=== PATIENT | male | born 1980 | race Caucasian/White ===

== ENCOUNTER 2024-07-30 01:39 | Inpatient (IN) | payer MEDICAID, OTHER ==
[~2024-07-30] VITALS: Ht 172.7 cm; Wt 98.0 kg
[2024-07-30] VITALS (12 sets, daily range): BP systolic 120–182; BP diastolic 60–97; PULSE 64–77; RESP 18–20; TEMP 36.4–37.2; O2SAT 90–98
[~2024-07-30 01:39] MED LIST: GABAPENTIN PO; INSULIN SUBCUT
[2024-07-30 02:24] LABS: CHLORIDE 99 mEq/L (98-107); POTASSIUM 5.2 mEq/L (3.5-5.1); SODIUM 137 mEq/L (136-145)
[2024-07-30 02:25] LABS: CALCIUM 7.4 mg/dL (8.7-10.4); CARBON DIOXIDE 27 mEq/L (21-32)
[2024-07-30 02:28] LABS: BASOPHILS % 0.4 % (0.0-2.0); EOSINOPHILS % 2.8 % (0.0-5.0); HEMATOCRIT. 32.7 % (42.0-52.0); HEMOGLOBIN. 10.7 g/dL (14.0-18.0); LYMPHOCYTES % 7.5 % (20.0-50.0); MEAN CORPUSCULAR HEMOGLOBIN 28.2 pg (28.0-32.0); MEAN CORPUSCULAR HGB CONC 32.8 g/dL (31.0-37.0); MEAN PLATELET VOLUME 7.1 fl (7.4-10.4); MONOCYTES % 10.9 % (2.0-8.0); NEUTROPHILS % 78.4 % (40.0-76.0); PLATELET 236 x1000/uL (130-400); RED CELL DISTRIBUTION WIDTH 18.9 % (11.6-14.6)
[2024-07-30 02:30] LABS: GLUCOSE 92 mg/dL (70-105); UREA NITROGEN BLOOD 56 mg/dL (9-23)
[2024-07-30 02:31] LABS: ETHANOL BLOOD < 10 mg/dL (<10)
[2024-07-30 02:32] LABS: TROPONIN I HIGH SENSITIVITY 19 ng/L (3.0-53)
[2024-07-30 02:48] LABS: D-DIMER 2.17 mg/L FEU (<0.50); INR 1.1; PARTIAL THROMBOPLASTIN TIME 28.4 sec (23.4-31.0); PROTHROMBIN TIME 11.8 sec (9.6-11.0)
[2024-07-30 02:51] LABS: CREATININE 5.4 mg/dL (0.6-1.3)
[2024-07-30] MEDS: MORPHINE SULFATE 4 MG/ML INJ (FOR IV/IM USE) IV ONE (02:58)
[2024-07-30] MEDS: ONDANSETRON HCL 4MG/2ML INJ IV ONE (04:56)
[2024-07-30] MEDS ORDERED: PNEUMOCOCCAL 20-VAL CONJ-DIP CRM 0.5ML IM ONE (07:30)
[2024-07-30] MEDS ORDERED: ALBUTEROL (0.083%) 2.5MG/3ML NEB HHN NR (07:45)
[2024-07-30] MEDS ORDERED: GUAIFENESIN 200MG/10ML SUGAR FREE UDC PO PRN (07:45)
[2024-07-30] MEDS ORDERED: LORAZEPAM 0.5MG TABLET PO PRN (07:45)
[2024-07-30] MEDS ORDERED: MAGNESIUM/ALUMINUM HYDROXIDE/SIMETHICONE 30ML UDC PO PRN (07:45)
[2024-07-30] MEDS ORDERED: DEXTROSE 50% WATER 50ML SYRINGE IV PRN (07:45)
[2024-07-30] MEDS ORDERED: ONDANSETRON HCL 4MG/2ML INJ IV PRN (07:45)
[2024-07-30] MEDS ORDERED: ACETAMINOPHEN 325MG TABLET PO PRN ×2 (07:45)
[2024-07-30] MEDS ORDERED: IPRATROPIUM/ALBUTEROL 0.5-3(2.5)MG/3ML NEB HHN PRN (07:45)
[2024-07-30] MEDS ORDERED: DEXTROSE 50% WATER 50ML SYRINGE IV NR (07:45)
[2024-07-30] MEDS ORDERED: DOCUSATE SODIUM 100MG CAPSULE PO PRN (07:45)
[2024-07-30] MEDS ORDERED: ENOXAPARIN 40MG/0.4ML SYR SUBCUT SCH (07:45)
[2024-07-30] MEDS ORDERED: PIPERACILLIN/TAZOBACTAM 3.375 G in DEXTROSE 5% WATER 50 ML IV SCH (07:45)
[2024-07-30] MEDS ORDERED: LOSA100T33 PO (07:54)
[2024-07-30] MEDS ORDERED: HYDR50TA39 PO (07:54)
[2024-07-30] MEDS ORDERED: AMLO10TA80 PO (07:54)
[2024-07-30] MEDS ORDERED: SEVE800T25 BC (07:54)
[2024-07-30] MEDS ORDERED: SEVE800T25 (07:54)
[2024-07-30] MEDS ORDERED: CINA30TA5 PO (07:54)
[2024-07-30] MEDS ORDERED: SODIUM BICARBONATE 8.4% 50MEQ/50ML SYR IV NR (08:38)
[2024-07-30] MEDS: MORPHINE SULFATE 2 MG/ML INJ (NOT FOR IM USE) IV PRN (08:50)
[2024-07-30 08:55] LABS: HEPATITIS B SURFACE ANTIGEN NEGATIVE (Negative)
[2024-07-30 09:16] LABS: HEPATITIS C AB NON REACTIVE (Neg) (Negative)
[2024-07-30] MEDS: INSULIN REGULAR (HUMULIN R) 1000UNITS/10ML VIAL IV SCH (09:30)
[2024-07-30] MEDS: CINACALCET HCL 30MG TABLET PO SCH (10:10)
[2024-07-30] MEDS: AMLODIPINE 10MG TABLET PO SCH (10:11)
[2024-07-30] MEDS: HYDRALAZINE HCL 50MG TABLET PO SCH (10:11)
[2024-07-30] MEDS: SODIUM ZIRCONIUM CYCLOSILICATE 10GM/PACKET PO NR (10:12)
[2024-07-30] MEDS: BLOOD SUGAR DIAGNOSTIC STRIP TEST SCH (11:45)
[2024-07-30] MEDS: INSULIN LISPRO 100 UNITS/ML SUBCUT SCH (12:15)
[2024-07-30] MEDS: SEVELAMER CARBONATE 800 MG TABLET PO SCH (12:15)
[2024-07-30 14:46] LABS: HEPATITIS B SURFACE ANTIGEN NEGATIVE (Negative)
[2024-07-30 15:06] LABS: HEPATITIS A AB IGM NEGATIVE (Negative)
[2024-07-30 15:07] LABS: HEPATITIS B CORE AB IGM NEGATIVE (Negative); HEPATITIS C AB NON REACTIVE (Neg) (Negative)
[2024-07-30] MEDS: LOSARTAN 100 MG TABLET PO SCH (16:06)
[2024-07-30] MEDS: GABAPENTIN 300MG CAPSULE PO SCH (16:07)
[2024-07-30] MEDS: ENOXAPARIN 30MG/0.3ML SYR SUBCUT SCH (16:20)
[2024-07-30] MEDS: PIPERACILLIN/TAZO 3.375G/50ML IV SCH (16:43)
[2024-07-30 17:04] LABS: TROPONIN I HIGH SENSITIVITY 16 ng/L (3.0-53)
[2024-07-30 17:05] LABS: CREATINE KINASE 193 IU/L (46-171)
[2024-07-30] MEDS: VANCOMYCIN 1.5GM PMX (XELLIA) 300 ML IV SCH (18:55)
[2024-07-30 18:57] LABS: CLARITY URINE CLEAR (CLEAR); COLOR URINE YELLOW (YELLOW); GLUCOSE URINE 2+ (NEGATIVE); KETONES URINE NEGATIVE (NEGATIVE); LEUKOCYTE ESTERASE URINE NEGATIVE (NEGATIVE); NITRITE URINE NEGATIVE (NEGATIVE); OCCULT BLOOD URINE TRACE (NEGATIVE); PROTEIN URINE 4+ (NEGATIVE); SPECIFIC GRAVITY URINE 1.015 (1.005-1.030)
[2024-07-30 19:13] LABS: *AMPHETAMINES SCREEN URINE NEGATIVE (NEGATIVE); *BARBITURATES SCREEN URINE NEGATIVE (NEGATIVE); *BENZODIAZEPINES SCREEN URINE NEGATIVE (NEGATIVE); *COCAINE SCREEN URINE NEGATIVE (NEGATIVE); CANNABINOID URINE SCREEN NEGATIVE (NEGATIVE); ECSTASY MDMA SCREEN URINE NEGATIVE (NEGATIVE); METHADONE URINE SCREEN NEGATIVE (NEGATIVE); OPIATES URINE SCREEN PRESUMPTIVE POSITIVE (NEGATIVE); PHENCYCLIDINE URINE SCREEN NEGATIVE (NEGATIVE)
[2024-07-30 19:56] LABS: BACTERIA URINE TRACE; RBC URINE 0-2 /hpf (0-2); SQUAMOUS EPITHELIAL CELL URINE FEW /lpf (RARE/1+); WBC URINE 0-2 /hpf (0-2)
[2024-07-31] VITALS: BP 134/66; PULSE 64; RESP 17; TEMP 36.6; O2SAT 91
[2024-07-31 00:40] LABS: CREATINE KINASE 186 IU/L (46-171); TROPONIN I HIGH SENSITIVITY 17 ng/L (3.0-53)
[2024-07-31 04:00] VITALS: BP 136/65; PULSE 66; RESP 17; TEMP 36.1; O2SAT 98
[2024-07-31 07:14] LABS: BASOPHILS % 0.7 % (0.0-2.0); EOSINOPHILS % 3.5 % (0.0-5.0); HEMATOCRIT. 29.4 % (42.0-52.0); HEMOGLOBIN. 9.7 g/dL (14.0-18.0); LYMPHOCYTES % 10.4 % (20.0-50.0); MEAN CORPUSCULAR HEMOGLOBIN 28.5 pg (28.0-32.0); MEAN CORPUSCULAR HGB CONC 33.1 g/dL (31.0-37.0); MEAN CORPUSCULAR VOLUME 86.1 fL (80.0-94.0); MEAN PLATELET VOLUME 7.1 fl (7.4-10.4); MONOCYTES % 12.8 % (2.0-8.0); NEUTROPHILS % 72.6 % (40.0-76.0); PLATELET 213 x1000/uL (130-400); RED BLOOD CELL COUNT 3.42 mill/uL (4.7-6.1); RED CELL DISTRIBUTION WIDTH 18.4 % (11.6-14.6)
[2024-07-31 07:19] LABS: CALCIUM 7.4 mg/dL (8.7-10.4); POTASSIUM 5.2 mEq/L (3.5-5.1)
[2024-07-31 07:20] LABS: T4 FREE 1.12 ng/dL (0.89-1.76)
[2024-07-31 07:21] LABS: THYROID STIMULATING HORMONE 6.41 uIU/mL (0.55-4.78)
[2024-07-31 08:00] VITALS: BP 121/64; PULSE 61; RESP 24; O2SAT 92
[2024-07-31 08:14] LABS: CREATININE 5.5 mg/dL (0.6-1.3)
[2024-07-31 12:00] VITALS: BP 142/65; PULSE 57; RESP 20; TEMP 36.4; O2SAT 92
[2024-07-31] MEDS: CEFAZOLIN 1000MG PREMIX 50 ML IV SCH (19:07)
[2024-07-31 20:00] VITALS: BP 129/66; PULSE 71; RESP 18; TEMP 35.9; O2SAT 96
[2024-08-01] VITALS (14 sets, daily range): BP systolic 101–142; BP diastolic 56–89; PULSE 59–79; RESP 17–20; TEMP 35.1–37; O2SAT 92–98
[2024-08-01 07:32] LABS: CALCIUM 7.3 mg/dL (8.7-10.4)
[2024-08-01 07:35] LABS: HEMATOCRIT 31.6 % (42.0-52.0); HEMOGLOBIN 10.2 g/dL (14.0-18.0); MEAN CORPUSCULAR HEMOGLOBIN 28.2 pg (28.0-32.0); MEAN CORPUSCULAR HGB CONC 32.4 g/dL (31.0-37.0); PLATELET 239 x1000/uL (130-400); RED BLOOD CELL COUNT 3.63 mill/uL (4.7-6.1); RED CELL DISTRIBUTION WIDTH 18.3 % (11.6-14.6); WHITE BLOOD COUNT 7.6 x1000/uL (4.5-11.0)
[2024-08-01 08:13] LABS: CREATININE 6.3 mg/dL (0.6-1.3)
[2024-08-01] MEDS ORDERED: SODIUM POLYSTYRENE SULFONATE 15 G/60 ML BOT PO ONE (08:30)
[2024-08-01] MEDS: DEXTROSE 50% WATER 50ML SYRINGE IV NR (08:36)
[2024-08-01] MEDS: INSULIN REGULAR (HUMULIN R) 1000UNITS/10ML VIAL IV NR (08:37)
[2024-08-01] MEDS: SODIUM BICARBONATE 8.4% 50MEQ/50ML SYR IV NR (08:48)
[2024-08-01] MEDS: SODIUM ZIRCONIUM CYCLOSILICATE 10GM/PACKET PO NR (09:00)
[2024-08-01] MEDS: HYDROCODONE/ACETAMINOPHEN 5/325MG TABLET PO PRN (09:10)
[2024-08-01] MEDS: CLONIDINE 0.1MG TABLET PO PRN (14:38)
[2024-08-01 17:34] LABS: BASOPHILS % 0.3 % (0.0-2.0); EOSINOPHILS % 3.4 % (0.0-5.0); HEMATOCRIT. 30.2 % (42.0-52.0); HEMOGLOBIN. 9.7 g/dL (14.0-18.0); LYMPHOCYTES % 9.3 % (20.0-50.0); MEAN CORPUSCULAR HEMOGLOBIN 27.9 pg (28.0-32.0); MEAN CORPUSCULAR HGB CONC 32.2 g/dL (31.0-37.0); MEAN CORPUSCULAR VOLUME 86.6 fL (80.0-94.0); MEAN PLATELET VOLUME 7.3 fl (7.4-10.4); MONOCYTES % 14.6 % (2.0-8.0); NEUTROPHILS % 72.4 % (40.0-76.0); PLATELET 237 x1000/uL (130-400); RED BLOOD CELL COUNT 3.49 mill/uL (4.7-6.1); RED CELL DISTRIBUTION WIDTH 18.5 % (11.6-14.6); WHITE BLOOD COUNT 6.5 x1000/uL (4.5-11.0)
[2024-08-01 17:40] LABS: POTASSIUM 4.9 mEq/L (3.5-5.1)
[2024-08-01 17:41] LABS: CALCIUM 7.7 mg/dL (8.7-10.4)
[2024-08-01 17:46] LABS: CREATININE 4.9 mg/dL (0.6-1.3)
[2024-08-01] MEDS: CALCIUM GLUCONATE 1GM PREMIX 50 ML IV NR (18:31)
[2024-08-02] VITALS (93 sets, daily range): BP systolic 104–199; BP diastolic 63–109; PULSE 63–97; RESP 18–41; TEMP 36.5–36.9; O2SAT 97–100
[2024-08-02] MEDS ORDERED: NALOXONE HCL 0.4MG/ML VIAL IV PRN (04:00)
[2024-08-02] MEDS ORDERED: DEXMEDETOMIDINE 400 MCG/100 ML 100 ML IV PRN (04:30)
[2024-08-02 04:44] LABS: BG CARBOXYHEMOGLOBIN 0.6 % (0.5-1.5); BG DEOXYHEMOGLOBIN 0.3 % (0.0-5.0); BG FRACTION INSPIRED OXYGEN 100; BG HCO3 ACT 17.2 mmol/L (21.0-28.0); BG METHEMOGLOBIN 0.3 % (0.5-1.5); BG OXYGEN SATURATION 99.7 % (94.0-98.0); BG OXYHEMOGLOBIN 98.8 % (94.0-98.0); BG PCO2 30.1 mmHg (35.0-48.0); BG PH 7.374 (7.350-7.450); BG PO2 513.2 mmHg (83.0-108.0); BG SAMPLE SITE RIGHT BRACHIAL; BG TOTAL HEMOGLOBIN 10.9 g/dL (13.5-17.5); BG TOTAL RESPIRATORY RATE 18 b/min; BG VENT MODE VENT - AC
[2024-08-02] MEDS: DEXMEDETOMIDINE 400 MCG/100 ML 100 ML IV PRN (04:55)
[2024-08-02 05:45] LABS: HEMATOCRIT. 31.8 % (42.0-52.0); MEAN CORPUSCULAR HEMOGLOBIN 27.9 pg (28.0-32.0); MEAN CORPUSCULAR HGB CONC 31.4 g/dL (31.0-37.0); MEAN PLATELET VOLUME 7.5 fl (7.4-10.4); PLATELET 239 x1000/uL (130-400); RED BLOOD CELL COUNT 3.58 mill/uL (4.7-6.1); RED CELL DISTRIBUTION WIDTH 19.1 % (11.6-14.6); WHITE BLOOD COUNT 7.5 x1000/uL (4.5-11.0)
[2024-08-02 05:54] LABS: CHLORIDE 100 mEq/L (98-107); POTASSIUM 6.1 mEq/L (3.5-5.1); SODIUM 136 mEq/L (136-145)
[2024-08-02 05:55] LABS: CALCIUM 8.1 mg/dL (8.7-10.4); CARBON DIOXIDE 20 mEq/L (21-32)
[2024-08-02 06:00] LABS: GLUCOSE 221 mg/dL (70-105); UREA NITROGEN BLOOD 57 mg/dL (9-23)
[2024-08-02 06:01] LABS: TROPONIN I HIGH SENSITIVITY 17 ng/L (3.0-53)
[2024-08-02 06:03] LABS: DIFFERENTIAL COMMENT 1
[2024-08-02] MEDS ORDERED: ACETAMINOPHEN 650MG SUPP PR PRN (06:15)
[2024-08-02 06:30] LABS: LACTIC ACID 4.3 mmol/L (0.4-2.0)
[2024-08-02 06:31] LABS: CREATININE 6.1 mg/dL (0.6-1.3); PHOSPHORUS 8.8 mg/dL (2.5-4.9)
[2024-08-02] MEDS ORDERED: SODIUM CHLORIDE 10% FOR INH 15ML NEB INH SCH (07:15)
[2024-08-02] MEDS: INSULIN REGULAR (HUMULIN R) 1000UNITS/10ML VIAL IV NR (08:00)
[2024-08-02] MEDS: DEXTROSE 50% WATER 50ML SYRINGE IV NR (08:00)
[2024-08-02] MEDS ORDERED: ADENOSINE 3 MG/ML 2ML VIAL IV ONE (08:00)
[2024-08-02] MEDS: SODIUM BICARBONATE 8.4% 50MEQ/50ML SYR IV NR (08:00)
[2024-08-02] MEDS: CALCIUM GLUCONATE 1GM PREMIX 50 ML IV NR (08:26)
[2024-08-02] MEDS: PANTOPRAZOLE SODIUM 40 MG/VIAL IV SCH (09:03)
[2024-08-02 10:13] LABS: ANISOCYTOSIS 2+; PLATELET ESTIMATE NORMAL
[2024-08-02] MEDS: HYDRALAZINE 20MG/ML VIAL IV PRN (10:39)
[2024-08-02 11:32] LABS: HEMATOCRIT. 33.6 % (42.0-52.0); HEMOGLOBIN. 10.9 g/dL (14.0-18.0); MEAN CORPUSCULAR HEMOGLOBIN 27.6 pg (28.0-32.0); MEAN CORPUSCULAR HGB CONC 32.3 g/dL (31.0-37.0); MEAN CORPUSCULAR VOLUME 85.3 fL (80.0-94.0); PLATELET 268 x1000/uL (130-400); RED BLOOD CELL COUNT 3.94 mill/uL (4.7-6.1); RED CELL DISTRIBUTION WIDTH 18.3 % (11.6-14.6); WHITE BLOOD COUNT 9.8 x1000/uL (4.5-11.0)
[2024-08-02 11:54] LABS: DIFFERENTIAL COMMENT 1
[2024-08-02 11:58] LABS: CARBON DIOXIDE 23 mEq/L (21-32); CHLORIDE 100 mEq/L (98-107); POTASSIUM 4.2 mEq/L (3.5-5.1); SODIUM 139 mEq/L (136-145)
[2024-08-02 11:59] LABS: CALCIUM 8.7 mg/dL (8.7-10.4)
[2024-08-02 12:04] LABS: CREATININE 4.6 mg/dL (0.6-1.3); GLUCOSE 151 mg/dL (70-105); UREA NITROGEN BLOOD 40 mg/dL (9-23)
[2024-08-02 12:06] LABS: PHOSPHORUS 4.2 mg/dL (2.5-4.9)
[2024-08-02] MEDS: IPRATROPIUM/ALBUTEROL 0.5-3(2.5)MG/3ML NEB NEB SCH (12:07)
[2024-08-02 12:24] LABS: ALANINE AMINOTRANSFERASE 50 IU/L (10-49); ALBUMIN 3.5 g/dL (3.2-4.8); ASPARTATE AMINOTRANSFERASE 49 IU/L (<34); BILIRUBIN TOTAL 1.1 mg/dL (0.1-1.0); PROTEIN TOTAL 7.3 g/dL (6.0-8.3)
[2024-08-02 12:26] LABS: BILIRUBIN DIRECT 0.8 mg/dL (<=3.0)
[2024-08-02 12:28] LABS: ANISOCYTOSIS 2+; PLATELET ESTIMATE NORMAL
[2024-08-02] MEDS: LABETALOL 5MG/ML 4ML INJ IV NR (13:15)
[2024-08-02] MEDS: SODIUM BICARBONATE 8.4% 50MEQ/50ML SYR IV SCH (14:12)
[2024-08-02 15:26] LABS: BG BASE EXCESS 0.7 mmol/L (-2.0-3.0); BG CARBOXYHEMOGLOBIN 1.1 % (0.5-1.5); BG DEOXYHEMOGLOBIN 0.6 % (0.0-5.0); BG FRACTION INSPIRED OXYGEN 40; BG HCO3 ACT 24.5 mmol/L (21.0-28.0); BG METHEMOGLOBIN 0.3 % (0.5-1.5); BG OXYGEN SATURATION 99.4 % (94.0-98.0); BG PCO2 36.5 mmHg (35.0-48.0); BG PH 7.445 (7.350-7.450); BG PO2 184.9 mmHg (83.0-108.0); BG SAMPLE SITE RIGHT RADIAL; BG TOTAL HEMOGLOBIN 11.8 g/dL (13.5-17.5); BG VENT MODE VENT - AC
[2024-08-02] MEDS ORDERED: LORAZEPAM 2MG/ML INJ IV PRN ×2 (17:45)
[2024-08-02] MEDS ORDERED: LEVETIRACETAM 1,500MG in NACL 100ML PREMIX IV ONE (17:45)
[2024-08-02] MEDS ORDERED: LORAZEPAM 2MG/ML UD SYRINGE IV PRN (18:00)
[2024-08-02] MEDS: LEVETIRACETAM 1500MG PREMIX 100 ML IV NR (18:38)
[2024-08-02 20:24] LABS: POTASSIUM 4.5 mEq/L (3.5-5.1)
[2024-08-02 20:25] LABS: CALCIUM 8.4 mg/dL (8.7-10.4)
[2024-08-02 20:31] LABS: AMMONIA 25 uMol/L (<32)
[2024-08-03] VITALS (90 sets, daily range): BP systolic 135–168; BP diastolic 61–80; PULSE 59–78; RESP 18–35; TEMP 36.6–37.4; O2SAT 96–100
[2024-08-03] MEDS: DEXT 5%/0.45% NACL 1000ML 1,000 ML IV SCH (00:34)
[2024-08-03] MEDS: METOCLOPRAMIDE HCL 10MG/2ML VIAL IV SCH (00:34)
[2024-08-03 06:10] LABS: HEMATOCRIT. 33.9 % (42.0-52.0); HEMOGLOBIN. 10.9 g/dL (14.0-18.0); MEAN CORPUSCULAR HEMOGLOBIN 27.2 pg (28.0-32.0); MEAN CORPUSCULAR VOLUME 85.1 fL (80.0-94.0); MEAN PLATELET VOLUME 7.3 fl (7.4-10.4); PLATELET 258 x1000/uL (130-400); RED BLOOD CELL COUNT 3.99 mill/uL (4.7-6.1); RED CELL DISTRIBUTION WIDTH 18.1 % (11.6-14.6); WHITE BLOOD COUNT 13.1 x1000/uL (4.5-11.0)
[2024-08-03 06:21] LABS: DIFFERENTIAL COMMENT 1
[2024-08-03 06:22] LABS: CHLORIDE 101 mEq/L (98-107); POTASSIUM 4.9 mEq/L (3.5-5.1); SODIUM 137 mEq/L (136-145)
[2024-08-03 06:23] LABS: CALCIUM 8.2 mg/dL (8.7-10.4); CARBON DIOXIDE 23 mEq/L (21-32)
[2024-08-03 06:28] LABS: GLUCOSE 184 mg/dL (70-105); UREA NITROGEN BLOOD 48 mg/dL (9-23)
[2024-08-03 07:04] LABS: CREATININE 5.4 mg/dL (0.6-1.3)
[2024-08-03] MEDS ORDERED: LEVETIRACETAM 1,000MG in NACL 100ML PREMIX IV SCH (09:00)
[2024-08-03] MEDS: LEVETIRACETAM 1000MG PREMIX 100 ML IV SCH (09:15)
[2024-08-03 09:20] LABS: BG BASE EXCESS -0.3 mmol/L (-2.0-3.0); BG CARBOXYHEMOGLOBIN 0.7 % (0.5-1.5); BG DEOXYHEMOGLOBIN 6.2 % (0.0-5.0); BG FRACTION INSPIRED OXYGEN 40; BG HCO3 ACT 23.2 mmol/L (21.0-28.0); BG METHEMOGLOBIN 0.3 % (0.5-1.5); BG OXYGEN SATURATION 93.7 % (94.0-98.0); BG OXYHEMOGLOBIN 92.8 % (94.0-98.0); BG PH 7.452 (7.350-7.450); BG PO2 71.3 mmHg (83.0-108.0); BG SAMPLE SITE RIGHT RADIAL; BG TOTAL HEMOGLOBIN 11.2 g/dL (13.5-17.5); BG VENT MODE VENT - AC
[2024-08-03 11:05] LABS: ALBUMIN 3.7 g/dL (3.2-4.8)
[2024-08-03] MEDS ORDERED: SODIUM BICARBONATE 4.2% 2.5MEQ/5ML VIAL IV ONE (11:27)
[2024-08-03] MEDS: LIDOCAINE HCL 1% 10 MG/ML 10ML VIAL ONE (11:27)
[2024-08-03 15:21] LABS: GIANT PLATELETS FEW; PLATELET ESTIMATE NORMAL; PLATELET SATELLITISM FEW
[2024-08-03 22:03] LABS: BODY FLUID MONOCYTES 11 %; BODY FLUID RBC 1140 /cu mm (0-2000); BODY FLUID WBC 67 /cu mm (0-200)
[2024-08-03] MEDS: LORAZEPAM 2MG/ML UD SYRINGE IV PRN (23:48)
[2024-08-04] VITALS (112 sets, daily range): BP systolic 116–174; BP diastolic 64–79; PULSE 63–94; RESP 9–24; TEMP 36.44736–37.4; O2SAT 96–100
[2024-08-04 05:49] LABS: HEMATOCRIT. 32.7 % (42.0-52.0); HEMOGLOBIN. 10.6 g/dL (14.0-18.0); MEAN CORPUSCULAR HEMOGLOBIN 27.5 pg (28.0-32.0); MEAN CORPUSCULAR HGB CONC 32.4 g/dL (31.0-37.0); MEAN CORPUSCULAR VOLUME 84.8 fL (80.0-94.0); MEAN PLATELET VOLUME 7.2 fl (7.4-10.4); PLATELET 276 x1000/uL (130-400); RED BLOOD CELL COUNT 3.86 mill/uL (4.7-6.1); RED CELL DISTRIBUTION WIDTH 17.9 % (11.6-14.6)
[2024-08-04 05:58] LABS: DIFFERENTIAL COMMENT 1
[2024-08-04 06:00] LABS: POTASSIUM 5.1 mEq/L (3.5-5.1)
[2024-08-04 06:01] LABS: CALCIUM 7.9 mg/dL (8.7-10.4)
[2024-08-04 06:17] LABS: CREATININE 6.2 mg/dL (0.6-1.3)
[2024-08-04] MEDS: QUETIAPINE FUMARATE 50MG TABLET PO PRN (06:37)
[2024-08-04 09:26] LABS: CREATININE 5.1 mg/dL (0.6-1.3)
[2024-08-04 14:07] LABS: ANISOCYTOSIS 1+; MICROCYTOSIS 1+; PLATELET ESTIMATE NORMAL
[2024-08-04] MEDS: PROPOFOL 10MG/ML 100ML 100 ML IV PRN (16:04)
[2024-08-05] VITALS (94 sets, daily range): BP systolic 123–166; BP diastolic 52–75; PULSE 72–91; RESP 12–18; TEMP 36.7–37.7; O2SAT 98–100
[2024-08-05] MEDS: LIDOCAINE HCL 1% 10 MG/ML 10ML VIAL ONE (12:32)
[2024-08-05 14:48] LABS: BASOPHILS % 0.4 % (0.0-2.0); EOSINOPHILS % 1.2 % (0.0-5.0); HEMATOCRIT. 30.7 % (42.0-52.0); LYMPHOCYTES % 8.7 % (20.0-50.0); MEAN CORPUSCULAR HEMOGLOBIN 27.9 pg (28.0-32.0); MEAN CORPUSCULAR HGB CONC 32.7 g/dL (31.0-37.0); MEAN CORPUSCULAR VOLUME 85.4 fL (80.0-94.0); MEAN PLATELET VOLUME 6.5 fl (7.4-10.4); MONOCYTES % 14.8 % (2.0-8.0); NEUTROPHILS % 74.9 % (40.0-76.0); PLATELET 246 x1000/uL (130-400); RED BLOOD CELL COUNT 3.59 mill/uL (4.7-6.1); RED CELL DISTRIBUTION WIDTH 17.2 % (11.6-14.6); WHITE BLOOD COUNT 10.7 x1000/uL (4.5-11.0)
[2024-08-05 16:07] LABS: POTASSIUM 4.8 mEq/L (3.5-5.1)
[2024-08-05 16:08] LABS: CALCIUM 6.9 mg/dL (8.7-10.4)
[2024-08-05 16:21] LABS: CREATININE 5.2 mg/dL (0.6-1.3)
[2024-08-05] MEDS ORDERED: PROPOFOL 10MG/ML 100ML 100 ML IV PRN (19:45)
[2024-08-06] VITALS (72 sets, daily range): BP systolic 42–156; BP diastolic 11–62; PULSE 0–83; RESP 0–19; TEMP 36.6–36.8; O2SAT 82–100
[2024-08-06 01:37] LABS: HEMATOCRIT. 28.7 % (42.0-52.0); HEMOGLOBIN. 9.5 g/dL (14.0-18.0); MEAN CORPUSCULAR HEMOGLOBIN 27.9 pg (28.0-32.0); MEAN CORPUSCULAR HGB CONC 33.1 g/dL (31.0-37.0); MEAN CORPUSCULAR VOLUME 84.2 fL (80.0-94.0); PLATELET 247 x1000/uL (130-400); RED BLOOD CELL COUNT 3.41 mill/uL (4.7-6.1); RED CELL DISTRIBUTION WIDTH 17.1 % (11.6-14.6); WHITE BLOOD COUNT 9.7 x1000/uL (4.5-11.0)
[2024-08-06 01:50] LABS: CHLORIDE 99 mEq/L (98-107); DIFFERENTIAL COMMENT 1; POTASSIUM 4.3 mEq/L (3.5-5.1); SODIUM 137 mEq/L (136-145)
[2024-08-06 01:51] LABS: CALCIUM 7.1 mg/dL (8.7-10.4); CARBON DIOXIDE 24 mEq/L (21-32); CREATINE KINASE MB FRACTION 1.7 ng/mL (0.5-3.6)
[2024-08-06 01:56] LABS: GLUCOSE 107 mg/dL (70-105)
[2024-08-06 01:57] LABS: AMYLASE 128 IU/L (30-118); INR 1.1; PARTIAL THROMBOPLASTIN TIME 30.6 sec (23.4-31.0); UREA NITROGEN BLOOD 48 mg/dL (9-23)
[2024-08-06 01:58] LABS: ALANINE AMINOTRANSFERASE < 7 IU/L (10-49); ALBUMIN 2.9 g/dL (3.2-4.8); ASPARTATE AMINOTRANSFERASE 17 IU/L (<34); BILIRUBIN DIRECT 0.6 mg/dL (<=3.0)
[2024-08-06 01:59] LABS: BILIRUBIN TOTAL 0.9 mg/dL (0.1-1.0); PROTEIN TOTAL 6.1 g/dL (6.0-8.3)
[2024-08-06 02:14] LABS: CREATININE 5.5 mg/dL (0.6-1.3); TROPONIN I HIGH SENSITIVITY 64 ng/L (3.0-53)
[2024-08-06] MEDS ORDERED: SODIUM BICARBONATE 8.4% 50MEQ/50ML SYR IV NR (02:45)
[2024-08-06] MEDS ORDERED: CALCIUM GLUCONATE 1,000 MG in DEXT 5% WATER 90 ML IV ONE (02:45)
[2024-08-06] MEDS ORDERED: SODIUM ZIRCONIUM CYCLOSILICATE 10GM/PACKET PO ONE (02:45)
[2024-08-06] MEDS ORDERED: INSULIN REGULAR (HUMULIN R) 1000UNITS/10ML VIAL IV NR (02:45)
[2024-08-06] MEDS ORDERED: DEXTROSE 50% WATER 50ML SYRINGE IV NR (02:45)
[2024-08-06 02:49] LABS: PLATELET ESTIMATE NORMAL
[2024-08-06 02:50] LABS: ANISOCYTOSIS 1+
[2024-08-06] MEDS ORDERED: CALCIUM GLUCONATE 1GM PREMIX 50 ML IV NR (03:30)
[2024-08-06 06:05] LABS: BASOPHILS % 0.6 % (0.0-2.0); EOSINOPHILS % 2.6 % (0.0-5.0); HEMATOCRIT. 30.1 % (42.0-52.0); HEMOGLOBIN. 9.9 g/dL (14.0-18.0); LYMPHOCYTES % 7.7 % (20.0-50.0); MEAN CORPUSCULAR HGB CONC 33.1 g/dL (31.0-37.0); MEAN CORPUSCULAR VOLUME 84.6 fL (80.0-94.0); NEUTROPHILS % 75.1 % (40.0-76.0); PLATELET 269 x1000/uL (130-400); RED BLOOD CELL COUNT 3.55 mill/uL (4.7-6.1); RED CELL DISTRIBUTION WIDTH 16.7 % (11.6-14.6); WHITE BLOOD COUNT 9.4 x1000/uL (4.5-11.0)
[2024-08-06 06:11] LABS: CALCIUM 7.2 mg/dL (8.7-10.4); CARBON DIOXIDE 25 mEq/L (21-32); CHLORIDE 100 mEq/L (98-107); POTASSIUM 4.4 mEq/L (3.5-5.1); SODIUM 137 mEq/L (136-145)
[2024-08-06 06:16] LABS: GLUCOSE 115 mg/dL (70-105); INR 1.1; PARTIAL THROMBOPLASTIN TIME 30.5 sec (23.4-31.0); PROTHROMBIN TIME 12.1 sec (9.6-11.0)
[2024-08-06 06:17] LABS: TRIGLYCERIDE 265 mg/dL (0-150); UREA NITROGEN BLOOD 49 mg/dL (9-23)
[2024-08-06 06:18] LABS: ALANINE AMINOTRANSFERASE < 7 IU/L (10-49); ALBUMIN 2.8 g/dL (3.2-4.8); AMYLASE 120 IU/L (30-118); ASPARTATE AMINOTRANSFERASE 16 IU/L (<34); BILIRUBIN DIRECT 0.7 mg/dL (<=3.0); CREATINE KINASE MB FRACTION 2.5 ng/mL (0.5-3.6)
[2024-08-06 06:19] LABS: PHOSPHORUS 7.9 mg/dL (2.5-4.9)
[2024-08-06 06:26] LABS: CREATININE 5.9 mg/dL (0.6-1.3)
[2024-08-06 06:31] LABS: TROPONIN I HIGH SENSITIVITY 61 ng/L (3.0-53)
[2024-08-06] MEDS: BLOOD SUGAR DIAGNOSTIC STRIP TEST SCH (08:00)
[2024-08-06 08:48] LABS: CLARITY URINE CLEAR (CLEAR); COLOR URINE YELLOW (YELLOW); GLUCOSE URINE 2+ (NEGATIVE); KETONES URINE NEGATIVE (NEGATIVE); LEUKOCYTE ESTERASE URINE NEGATIVE (NEGATIVE); NITRITE URINE NEGATIVE (NEGATIVE); OCCULT BLOOD URINE 1+ (NEGATIVE); PROTEIN URINE 3+ (NEGATIVE); SPECIFIC GRAVITY URINE 1.013 (1.005-1.030); UROBILINOGEN URINE 0.2 E.U./dL (0.2-1.0)
[2024-08-06] MEDS ORDERED: HYDRALAZINE 20MG/ML VIAL IV PRN (09:15)
[2024-08-06 09:19] LABS: BG BASE EXCESS -2.5 mmol/L (-2.0-3.0); BG CARBOXYHEMOGLOBIN 0.9 % (0.5-1.5); BG DEOXYHEMOGLOBIN 2.3 % (0.0-5.0); BG FRACTION INSPIRED OXYGEN 40; BG HCO3 ACT 22.7 mmol/L (21.0-28.0); BG METHEMOGLOBIN 0.3 % (0.5-1.5); BG OXYGEN SATURATION 97.7 % (94.0-98.0); BG OXYHEMOGLOBIN 96.5 % (94.0-98.0); BG PCO2 40.7 mmHg (35.0-48.0); BG PH 7.364 (7.350-7.450); BG PO2 103.8 mmHg (83.0-108.0); BG SAMPLE SITE RIGHT RADIAL; BG TOTAL HEMOGLOBIN 10.3 g/dL (13.5-17.5); BG TOTAL RESPIRATORY RATE 16 b/min; BG VENT MODE VENT - AC
[2024-08-06 09:42] LABS: SQUAMOUS EPITHELIAL CELL URINE NONE SEEN /lpf (RARE/1+)
[2024-08-06 09:43] LABS: BACTERIA URINE 1+
[2024-08-06 09:44] LABS: WBC URINE 0-2 /hpf (0-2)
[2024-08-06] MEDS: PHENYLEPHRINE 50MG/250ML PMX 250 ML IV PRN (10:58)
[2024-08-06 12:07] LABS: HEMOGLOBIN. 10.1 g/dL (14.0-18.0); MEAN CORPUSCULAR HEMOGLOBIN 27.8 pg (28.0-32.0); MEAN CORPUSCULAR HGB CONC 32.7 g/dL (31.0-37.0); MEAN PLATELET VOLUME 6.8 fl (7.4-10.4); PLATELET 306 x1000/uL (130-400); RED BLOOD CELL COUNT 3.65 mill/uL (4.7-6.1); RED CELL DISTRIBUTION WIDTH 16.7 % (11.6-14.6); WHITE BLOOD COUNT 11.6 x1000/uL (4.5-11.0)
[2024-08-06 12:08] LABS: DIFFERENTIAL COMMENT 1
[2024-08-06 12:14] LABS: BG BASE EXCESS -3.4 mmol/L (-2.0-3.0); BG CARBOXYHEMOGLOBIN 1.3 % (0.5-1.5); BG DEOXYHEMOGLOBIN 3.8 % (0.0-5.0); BG FRACTION INSPIRED OXYGEN 40; BG HCO3 ACT 22.7 mmol/L (21.0-28.0); BG METHEMOGLOBIN 0.3 % (0.5-1.5); BG OXYGEN SATURATION 96.1 % (94.0-98.0); BG OXYHEMOGLOBIN 94.6 % (94.0-98.0); BG PCO2 45.5 mmHg (35.0-48.0); BG PH 7.316 (7.350-7.450); BG SAMPLE SITE RIGHT RADIAL; BG TOTAL HEMOGLOBIN 11.2 g/dL (13.5-17.5); BG TOTAL RESPIRATORY RATE 16 b/min; BG VENT MODE VENT - AC
[2024-08-06 12:23] LABS: INR 1.1; PARTIAL THROMBOPLASTIN TIME 31.6 sec (23.4-31.0)
[2024-08-06 12:37] LABS: CHLORIDE 99 mEq/L (98-107); POTASSIUM 4.3 mEq/L (3.5-5.1); SODIUM 135 mEq/L (136-145)
[2024-08-06 12:38] LABS: CALCIUM 7.2 mg/dL (8.7-10.4); CARBON DIOXIDE 24 mEq/L (21-32)
[2024-08-06 12:43] LABS: CREATINE KINASE MB FRACTION 4.6 ng/mL (0.5-3.6); GLUCOSE 113 mg/dL (70-105); UREA NITROGEN BLOOD 51 mg/dL (9-23)
[2024-08-06 12:44] LABS: TROPONIN I HIGH SENSITIVITY 52 ng/L (3.0-53)
[2024-08-06 12:45] LABS: ALANINE AMINOTRANSFERASE < 7 IU/L (10-49); ALBUMIN 2.8 g/dL (3.2-4.8); AMYLASE 114 IU/L (30-118); ASPARTATE AMINOTRANSFERASE 17 IU/L (<34); BILIRUBIN DIRECT 0.9 mg/dL (<=3.0)
[2024-08-06 12:46] LABS: BILIRUBIN TOTAL 1.2 mg/dL (0.1-1.0)
[2024-08-06 12:50] LABS: CREATININE 6.2 mg/dL (0.6-1.3)
[2024-08-06 12:54] LABS: PHOSPHORUS 9.2 mg/dL (2.5-4.9)
[2024-08-06 13:15] LABS: ANISOCYTOSIS 1+; PLATELET ESTIMATE NORMAL
[2024-08-06] MEDS: HYDRALAZINE HCL 25MG TABLET PO SCH (13:55)
[2024-08-06] MEDS ORDERED: NOREPINEPHRINE 8MG/250ML PMX 250 ML IV PRN (14:00)
[2024-08-06] MEDS ORDERED: IOHEXOL-300 100 ML BOTTLE ONE (14:53)
[2024-08-07] MEDS ORDERED: AMLODIPINE 5MG TABLET PO SCH (09:00)
== END 2024-08-06 15:00 | DRG 383 ==
LOC: ER 01:39 → EDBEDREQ 01:58 → 5WST 04:53 → EDBEDREQ 04:55 → MICUSO 08-02 03:30
PROVIDERS: ADMIT Internal Medicine; ATTEND Internal Medicine
PROC: 5A1D70Z Performance of Urinary Filtration, Intermittent, Less than 6 Hours Per Day (ICD-10-PCS; 2024-07-30)
PROC: 5A1D70Z Performance of Urinary Filtration, Intermittent, Less than 6 Hours Per Day (ICD-10-PCS; 2024-08-01)
PROC: 0BH17EZ Insertion of Endotracheal Airway into Trachea, Via Natural or Artificial Opening (ICD-10-PCS; principal; 2024-08-02)
PROC: 5A1955Z Respiratory Ventilation, Greater than 96 Consecutive Hours (ICD-10-PCS; 2024-08-02)
PROC: 5A1D70Z Performance of Urinary Filtration, Intermittent, Less than 6 Hours Per Day (ICD-10-PCS; 2024-08-02)
PROC: 5A12012 Performance of Cardiac Output, Single, Manual (ICD-10-PCS; 2024-08-02)
PROC: 0W9G3ZZ Drainage of Peritoneal Cavity, Percutaneous Approach (ICD-10-PCS; 2024-08-03)
PROC: 5A1D70Z Performance of Urinary Filtration, Intermittent, Less than 6 Hours Per Day (ICD-10-PCS; 2024-08-04)
PROC: 4A00X4Z Measurement of Central Nervous Electrical Activity, External Approach (ICD-10-PCS; 2024-08-04)
PROC: 02HV33Z Insertion of Infusion Device into Superior Vena Cava, Percutaneous Approach (ICD-10-PCS; 2024-08-05)
PROC: B548ZZA Ultrasonography of Superior Vena Cava, Guidance (ICD-10-PCS; 2024-08-05)
DX: L03.115 Cellulitis of right lower limb (principal); J96.01 Acute respiratory failure with hypoxia; G93.40 Encephalopathy, unspecified; E83.39 Other disorders of phosphorus metabolism; D64.9 Anemia, unspecified; E11.22 Type 2 diabetes mellitus with diabetic chronic kidney disease; I12.0 Hypertensive chronic kidney disease with stage 5 chronic kidney disease or end stage renal disease; N18.6 End stage renal disease; I16.1 Hypertensive emergency; E11.40 Type 2 diabetes mellitus with diabetic neuropathy, unspecified; Z99.2 Dependence on renal dialysis; I46.9 Cardiac arrest, cause unspecified; L03.116 Cellulitis of left lower limb; F17.210 Nicotine dependence, cigarettes, uncomplicated; I51.7 Cardiomegaly; R79.89 Other specified abnormal findings of blood chemistry; E87.5 Hyperkalemia; I87.8 Other specified disorders of veins; I87.2 Venous insufficiency (chronic) (peripheral); Z79.899 Other long term (current) drug therapy; Z99.3 Dependence on wheelchair; Z90.49 Acquired absence of other specified parts of digestive tract; Z51.5 Encounter for palliative care; Z99.11 Dependence on respirator [ventilator] status
CPT/HCPCS: 31500; 31720; 36415; 36573; 36600; 49083; 70551; 71045; 71260; 74018; 74177; 76705; 78580; 80048; 80053; 80061; 80076; 80305; 80320; 81003; 82040; 82140; 82150; 82248; 82375; 82465; 82550; 82553; 82805; 82962; 83036; 83605; 83615; 83735; 83880; 83986; 84100; 84145; 84439; 84443; 84478; 84484; 85025; 85027; 85379; 86705; 86709; 86850; 86900; 87070; 87340; 89060; 90935; 92950; 93005; 93970; 94002; 94003; 94070; 94640; 94664; 95816; 98960; 99285; A4606; C1725; J0153; J0282; J0360; J0461; J0610; J0690; J1650; J1815; J1953; J2003; J2060; J2270; J2371; J2405; J2470; J2543; J2704; J2765; J3370; J3475; J3490; J7060; J7131; Q9967; G0480